=== PATIENT | male | born 1955 | race Asian ===

== ENCOUNTER 2023-07-29 16:22 | Emergency (ER) | payer MEDICARE, SELFPAY ==
[2023-07-29 16:30] VITALS: BP 105/62; BMI 28.8
[2023-07-29 17:57] VITALS: BP 98/70
--- NOTE | 2023-07-29 18:07 | ED.GENMED ---
History of Present Illness
General
Chief Complaint: Cough
Time Seen by Provider: 07/29/23 17:45
Travel History
Have you had any contact with someone who has COVID-19?: No
Do you have any symptoms of coronavirus? Fever > 100 degrees, chills, cough, shortness of breath, sore throat, loss of taste or smell, muscle aches, or headache?: No
History of Present Illness
History of Present Illness:
Patient presents to the emergency department with cough and fever. Symptoms have been ongoing for the past 1 week. Patient is accompanied with his spouse who provides history given his baseline dementia. She bought a pulse oximeter at home and
found it to be in the high 80s which is why she presents the emergency department. He denies chest pain. He is not having any difficulty catching his breath but does have frequent cough.
Phy Exam
Physical Exam
Physical Exam:
GENERAL APPEARANCE: NAD, well developed/ well nourished
EYES lids/conjunctiva normal
EARS/NOSE/THROAT Mucous membranes moist, uvula midline without oral pharyngeal erythema, exudate or swelling
HEAD/NECK normocephalic atraumatic, neck is supple.
RESPIRATORY respiratory effort normal, speaks in full sentences, no accessory muscle use. Lungs clear to auscultation without rhonchi, wheezes, rales. Saturation is 98% on room air
CARDIAC Regular rate and rhythm, no edema.
ABDOMINAL Soft, ND/NT. No pulsatile masses on exam, rebound tenderness, Kamara sign or pain over Mcburney's point.
MUSCLES/EXTREMITIES No abnormal range of motion, no swelling.
SKIN Warm, pink and dry. No rashes
NEUROLOGICAL Normal level of consciousness, baseline dementia
Course
Orders/Labs/Results
Orders:
Orders
07/29/23 18:02
0.9% Sodium Chloride 1000 ml [Nss] 1,000 ml IV BOLUS
Pulse Ox/cont/shift [RESP] Stat
Quantity: 1
07/29/23 18:03
CR Chest - 2 Views Urgent
Comment:
Reason For Exam: cough, fever
07/29/23 18:07
Basic Metabolic Panel Urgent
COVID-19 Antigen Urgent
Source: Nasal Swab
Complete Blood Count/With Diff Urgent
Lactic Acid Q4H
Comment: CANCEL 2nd LACTIC ACID IF 1st LACTIC ACID IS LESS THAN 2
Influenza A+B Rapid Molecular Urgent
JULIAN Source: Nasal Swab
Specimen Description:
07/29/23 18:54
Urinalysis Reflex To Culture Urgent
Date Specimen was Collected: 07/29/23
Time Specimen was Collected: 18:50
Urine Microscopic Reflex Cult Urgent
Urine Culture Urgent
JULIAN Source: U
Specimen Description:
Date Specimen was Collected: 07/29/23
Time Specimen was Collected: 18:50
07/29/23 20:21
CefTRIAXone [Rocephin] 1,000 mg IV NOW STA
07/29/23 20:27
Azithromycin [Zithromax] 500 mg PO NOW STA
07/29/23 22:15
Lactic Acid Q4H
Comment: CANCEL 2nd LACTIC ACID IF 1st LACTIC ACID IS LESS THAN 2
07/30/23 08:00
Azithromycin [Zithromax] 500 mg PO DAILY
Abnormal Lab Results
07/29/23 07/29/23
18:07 18:54
WBC 11.4 H 10^3/uL
(4.8-10.8)
RBC 4.59 L 10^6/uL
(4.70-6.10)
Hgb 12.4 L g/dL
(13.0-18.0)
Hct 36.6 L %
(39.0-52.0)
MCV 79.7 L fL
(80.0-94.0)
Abs Immat Gran (auto) 0.1 H 10^3/uL
(0-0.05)
Absolute Neuts (auto) 8.4 H 10^3/uL
(1.4-6.5)
Absolute Monos (auto) 1.3 H 10^3/uL
(0.1-0.6)
Lymphocytes % 13.8 L %
(20.5-51.1)
Monocytes % 10.9 H %
(1.7-9.3)
Sodium 130 L mmol/L
(135-145)
Chloride 97 L mmol/L
(98-107)
Creatinine 1.4 H mg/dL
(0.7-1.3)
Glucose 132 H mg/dl
(70-99)
Urine Ketones Trace A
(Negative)
Urine Bilirubin 1+ A
(Negative)
Leukocyte Esterase Rfl 1+ A
(Negative)
07/29/23 18:07
07/29/23 18:07
Vital Signs
Initial and Last Documented VS:
Initial Vital Signs
Temp Pulse Resp BP Pulse Ox
98.7 F 88 18 105/62 94
07/29/23 16:30 07/29/23 16:30 07/29/23 16:30 07/29/23 16:30 07/29/23 16:30
Last Documented Vital Signs
Temp Pulse Resp BP Pulse Ox
98.7 F 88 18 109/67 94
07/29/23 16:30 07/29/23 16:30 07/29/23 16:30 07/29/23 20:00 07/29/23 20:00
*Critical Care Note
Total Time (30-74mins, 75-104mins- exclusive of procedures): Not Applicable
ED Attending Note
ED Attending Note
ED Attending Note:
Patient presents with fevers and cough and possible hypoxia. O2 sat remained within normal limits in the emergency department. He appeared slightly dehydrated and responded well to fluids. Chest x-ray without large lobar infiltrate but possible
subtle RLL infiltrate. Will treat for pneumonia clinically. Curb 65 score is 1 and patient low risk for significant decompensation. Return precautions given to the patient's .
-
Portions of this chart may have been created with voice recognition software.� Occasional wrong word or��sound alike� substitutions may have occurred due to the inherent limitations of voice recognition software.
Discharge Plan
Departure
Patient Disposition: Home (Routine Discharge)
Date of Disposition: 07/29/23
Time of Disposition: 20:24
Patient with high blood pressure during this ER visit?: No
Discharge Problem:
Community acquired pneumonia
Instructions: Pneumonia, Adult (DC)
Prescriptions:
New
cefpodoxime 200 mg tablet
200 mg PO BID Qty: 10 0RF
azithromycin [Zithromax] 250 mg tablet
250 mg PO DAILY Qty: 4 0RF
Referrals:
JENNIFER GONSALEZ [Other]
Activity Restrictions/Additional Instructions:
return to ER immediately with new or worsening symptoms
take antibiotics as prescribed
Interventions
Interventions:
*Risk Screen - Suicide Last Done: 07/29/23 16:30
*General Assessment Last Done: 07/29/23 17:52
*Neglect/Abuse Screening Last Done: 07/29/23 16:30
ED- Fall Risk Assessment Last Done: 07/29/23 16:30
*ED COVID-19 Vaccine History Last Done: 07/29/23 17:52
ED- Pulmonary Assessment Last Done: 07/29/23 17:52
Discharge Date and Time
Print Language: JORDANIAN
[2023-07-29 18:16] LABS: % Basophils 0.3 % (0-2); % Immature Granulocytes 0.4 % (0-0.5); % Lymphocytes 13.8 % (20.5-51.1); % Monocytes 10.9 % (1.7-9.3); % Neutrophils 73.6 % (42.2-75.2); Absolute Eosinophils 0.1 10^3/uL (0-0.7); Absolute Immature Granulocytes 0.1 10^3/uL (0-0.05); Absolute Lymphocytes 1.6 10^3/uL (1.2-3.4); Absolute Monocytes 1.3 10^3/uL (0.1-0.6); Absolute Neutrophils 8.4 10^3/uL (1.4-6.5); Hematocrit 36.6 % (39.0-52.0); Hemoglobin 12.4 g/dL (13.0-18.0); Mean Corp Hgb Conc. 33.9 g/dL (33.0-37.0); Mean Corpuscular Volume 79.7 fL (80.0-94.0); Mean Platelet Volume 8.3 fL (7.4-10.4); Nucleated Red Blood Cells % 0 % (-); Platelet Count 318 10^3/uL (130-400); Red Blood Cell Count 4.59 10^6/uL (4.70-6.10); Red Cell Dist. Width 14.3 % (11.5-14.5); White Blood Cell Count 11.4 10^3/uL (4.8-10.8)
[2023-07-29 18:29] LABS: Blood Urea Nitrogen 17 mg/dl (9-20); Calcium 8.7 mg/dl (8.4-10.2); Carbon Dioxide 25 mmol/L (22-30); Chloride 97 mmol/L (98-107); Estimated Creatinine Clearance 51 ml/min; Glucose 132 mg/dl (70-99); Potassium 4.4 mmol/L (3.5-5.1); Sodium 130 mmol/L (135-145); eGFR 54.75
[2023-07-29 18:30] LABS: Lactic Acid 0.9 mmol/L (0.7-2.0)
[2023-07-29 18:35] LABS: COVID-19 Antigen Negative (Negative)
[2023-07-29] MEDS: NSS 1000 IV (18:41)
[2023-07-29 19:00] VITALS: BP 117/70
[2023-07-29 19:03] LABS: Urine Albumin Trace (Neg - Trace); Urine Bilirubin 1+ (Negative); Urine Character Clear (Clear); Urine Color Amber; Urine Glucose Negative (Negative); Urine Ketone Trace (Negative); Urine Leukocyte 1+ (Negative); Urine Nitrite Negative (Negative); Urine Occult Blood Negative (Negative); Urine Urobilinogen 1+ (Neg - 1+)
[2023-07-29 19:10] LABS: Urine Hyaline Cast 0-2 /LPF (0-2); Urine Squamous Cell 0-2 /LPF (Few)
[2023-07-29 19:11] LABS: Urine Red Blood Cell None Seen /HPF (0-2)
[2023-07-29 20:00] VITALS: BP 109/67
[2023-07-29] MEDS: ROCEPHIN 1000 MG IV (20:28)
[2023-07-29] MEDS: ZITHROMAX 500 MG PO (20:42)
== END 2023-07-29 20:48 | disposition home or self-care (01) ==
LOC: EMR 16:22
PROVIDERS: EMERGENCY PHYSICIAN Emergency Medicine
DX: J18.9 Pneumonia, unspecified organism (principal); F03.90 Unspecified dementia, unspecified severity, without behavioral disturbance, psychotic disturbance, mood disturbance, and anxiety
CPT/HCPCS: 99283; 96374; 96361; 71046; 80048; 81003; 81015; 83605; 85025; 87086; 87502; 87811

== ENCOUNTER 2024-02-01 11:24 | Emergency (ER) | payer MEDICARE, SELFPAY ==
[2024-02-01] VITALS (7 sets, daily range): BP systolic 100–137; BP diastolic 75–86; BMI 30.5
--- NOTE | 2024-02-01 12:17 | EDRN ---
Pt's states that she noted a tremor in pt's neck and bilateral hands w/ L > R. Tremor has decreased for now. Pt still feels it in his neck. Recently pt was diagnosed w/ 80% carotid blockage on L and 70% on R. Spouse states at time not
symptomatic and due to vascular dementia will not operate. Spouse concerned that it was simular to what spouse's mom would have prior to a TIA. Pt is on plavix and took that this am and spouse states she administered a baby ASA to him this am.
--- NOTE | 2024-02-01 14:27 | ED.GENMED ---
History of Present Illness
General
Chief Complaint: Weakness
Source: patient
Exam Limitations: none
Time Seen by Provider: 02/01/24 12:46
Nursing documentation reviewed up to this point in time: agreed with
History of Present Illness
History of Present Illness:
Patient with history of vascular dementia, presents to ED accompanied by his , after he was noted to exhibit involuntary bilateral arm tremor, shortly after waking up this morning. Denies previous history of similar symptoms. Since this
morning, his tremor has improved. Patient himself has no complaints. Denies headache. Denies weakness. Denies difficulty ambulation. Denies difficulty with speech. Denies confusion. Denies recent change in medications or diet. Of note,
patient is currently visiting from [place] and will be returning home in 2 weeks. Recently, as part of evaluation for potential knee surgery, he was evaluated by rotor balancer. At that time, and imaging study had revealed bilateral carotid artery
stenosis greater than 75%. He was told at that time, that he is not a candidate for surgery due to his underlying vascular dementia.
Review of Systems
Review of Systems
Allergies reviewed?: Yes
All Other Systems: ROS reviewed and negative except as documented in HPI and ROS
Constitutional: Reports no symptoms
ABD/GI: Reports no symptoms
Musculoskeletal: Reports no symptoms
Skin: Reports no symptoms
Neurological: Reports other (Involuntary tremor)
Phy Exam
Physical Exam
Physical Exam:
Physical Exam
General: no apparent distress, not acutely ill. afebrile
Head: nc/at. eomi
Neck: supple. no meningeal signs.
Heart: s1/s2 regular rate and rhythm, no murmur. equal radial pulses.
Lungs: no acute respiratory distress. clear bilaterally
Abdomen: normal bowel sounds. not tender.
Neuro: alert and oriented. no focal sensory/motor deficit. normal speech. mild intermittent spastic movement of b/l hands noted.
Skin: no rash
Psychiatric: well kept. interactive and cooperative
Extremities: no edema. no calf tenderness.
Course
Orders/Labs/Results
Orders:
Orders
02/01/24 14:14
CT Head W/o Iv Contrast Urgent
Comment:
Reason For Exam: involuntary UE tremor
02/01/24 15:12
Complete Blood Count/With Diff Urgent
Comprehensive Metabolic Panel Urgent
Magnesium Urgent
Abnormal Lab Results
02/01/24
15:12
RDW 14.8 H %
(11.5-14.5)
Absolute Monos (auto) 0.7 H 10^3/uL
(0.1-0.6)
Monocytes % 10.1 H %
(1.7-9.3)
02/01/24 15:12
02/01/24 15:12
Vital Signs
Initial and Last Documented VS:
Initial Vital Signs
Temp Pulse Resp BP Pulse Ox
97.6 F 66 20 137/86 100
02/01/24 11:26 02/01/24 11:26 02/01/24 11:26 02/01/24 11:26 02/01/24 11:26
Last Documented Vital Signs
Temp Pulse Resp BP Pulse Ox
97.6 F 91 20 100/78 97
02/01/24 11:26 02/01/24 17:26 02/01/24 17:26 02/01/24 17:25 02/01/24 15:30
MDM/Problems Addressed
MDM/Problems Addressed:
CT head: NAD.
Patient with continual spontaneous improvement in frequency of resting tremor. Patient remains otherwise, afebrile, hemodynamically stable, and without any focal neurological deficit.
Discussed with on-call neurology, Dr. Dodge, who feels that patient's presentation is less likely CVA, but more likely manifestation with continuation of his underlying vascular dementia. As such, for symptomatic control, recommends offering to
patient and spouse starting carbidopa/levadopa (10/100mg) medication short-term, until reevaluation with his primary neurologist.
Patient and spouse would like to start carbidopa now, and follow-up with his neurologist upon return to [place].
*Critical Care Note
Total Time (30-74mins, 75-104mins- exclusive of procedures): Not Applicable
ED Attending Note
-
Portions of this chart may have been created with voice recognition software.� Occasional wrong word or��sound alike� substitutions may have occurred due to the inherent limitations of voice recognition software.
Discharge Plan
Departure
Patient Disposition: Home (Routine Discharge)
Date of Disposition: 02/01/24
Time of Disposition: 17:19
Patient with high blood pressure during this ER visit?: Yes
Condition: Good
Discharge Problem:
Tremor
Instructions: Tremor
Prescriptions:
New
carbidopa-levodopa [Sinemet] 10-100 mg tablet
1 tab PO HS Qty: 30 0RF
No Action
riboflavin (vitamin B2) 100 mg Tablet
100 mg PO DAILY
donepezil 10 mg Tablet
10 mg PO HS
cyanocobalamin (vitamin B-12) 1,000 mcg Tablet
1,000 mcg PO DAILY
Theragen Tablet
1 tab PO DAILY
amlodipine [Norvasc] 5 mg Tablet
5 mg PO QPM
simvastatin [Zocor] 40 mg Tablet
40 mg PO HS
alprazolam [Xanax] 0.5 mg Tablet
0.5 mg PO BIDPRN PRN (Reason: anxiety)
lisinopril 10 mg Tablet
10 mg PO BID
escitalopram oxalate [Lexapro] 20 mg Tablet
20 mg PO QPM
memantine 10 mg Tablet
10 mg PO BID
coQ10 (ubiquinol) 100 mg Capsule
100 mg PO DAILY
Rexulti 1 mg Tablet
1 mg PO HS
cefpodoxime 200 mg tablet
200 mg PO BID Qty: 10 0RF
azithromycin [Zithromax] 250 mg tablet
250 mg PO DAILY Qty: 4 0RF
Referrals:
UNKNOWN - PT DOES,NOT KNOW [Family Provider] -
Activity Restrictions/Additional Instructions:
As discussed, please follow-up with your neurologist as soon as you return to [place] for reevaluation.
Interventions
Interventions:
*Risk Screen - Suicide Last Done: 02/01/24 12:21
*General Assessment Last Done: 02/01/24 12:20
*Neglect/Abuse Screening Last Done: 02/01/24 12:21
ED- Fall Risk Assessment Last Done: 02/01/24 12:21
*ED COVID-19 Vaccine History Last Done: 02/01/24 12:20
*Nursing Disposition Last Done: 02/01/24 17:29
ED- Cardiac Assessment Last Done: 02/01/24 12:25
ED- Neurological Assessment Last Done: 02/01/24 12:25
ED- Pulmonary Assessment Last Done: 02/01/24 12:25
Discharge Date and Time
Discharge Date/Time: 02/01/24 17:29
Print Language: MALAY
[2024-02-01 15:22] LABS: % Basophils 0.6 % (0-2); % Eosinophils 3.5 % (0-6); % Immature Granulocytes 0.3 % (0-0.5); % Lymphocytes 26.2 % (20.5-51.1); % Monocytes 10.1 % (1.7-9.3); % Neutrophils 59.3 % (42.2-75.2); Absolute Eosinophils 0.3 10^3/uL (0-0.7); Absolute Lymphocytes 1.9 10^3/uL (1.2-3.4); Absolute Monocytes 0.7 10^3/uL (0.1-0.6); Absolute Neutrophils 4.2 10^3/uL (1.4-6.5); Hematocrit 41.7 % (39.0-52.0); Hemoglobin 14.1 g/dL (13.0-18.0); Mean Corp Hgb Conc. 33.8 g/dL (33.0-37.0); Mean Corpuscular Hgb 27.2 pg (27.0-31.0); Mean Corpuscular Volume 80.5 fL (80.0-94.0); Nucleated Red Blood Cells % 0 % (-); Platelet Count 219 10^3/uL (130-400); Red Blood Cell Count 5.18 10^6/uL (4.70-6.10); Red Cell Dist. Width 14.8 % (11.5-14.5); White Blood Cell Count 7.1 10^3/uL (4.8-10.8)
[2024-02-01 15:36] LABS: ALT (SGPT) 47 U/L (0-50); AST (SGOT) 39 U/L (17-59); Albumin 4.2 g/dl (3.5-5.0); Alkaline Phosphatase 53 U/L (38-126); Blood Urea Nitrogen 13 mg/dl (9-20); Calcium 8.9 mg/dl (8.4-10.2); Carbon Dioxide 28 mmol/L (22-30); Chloride 100 mmol/L (98-107); Estimated Creatinine Clearance 73 ml/min; Glucose 86 mg/dl (70-99); Potassium 4.2 mmol/L (3.5-5.1); Sodium 137 mmol/L (135-145); Total Bilirubin 1.1 mg/dl (0.2-1.3); Total Protein 7.2 g/dl (6.3-8.2); eGFR > 60.00
--- NOTE | 2024-02-01 16:28 | EDRN ---
Pt OOB to BR at this time. Spouse asked about pt eating and drinking. This RN checked w/ Dr. Murphy who said it is okay for pt to eat and drink w/ spouse informed.
== END 2024-02-01 17:29 | disposition home or self-care (01) ==
LOC: EMR 11:24
PROVIDERS: EMERGENCY PHYSICIAN Emergency Medicine
DX: R25.1 Tremor, unspecified (principal); F01.50 Vascular dementia, unspecified severity, without behavioral disturbance, psychotic disturbance, mood disturbance, and anxiety
CPT/HCPCS: 99284; 70450; 80053; 83735; 85025